=== PATIENT | male | born 1950 | race Caucasian/White ===

== ENCOUNTER 2018-09-07 06:45 | Day surgery (SDC) | payer OTHER ==
[2018-09-07] VITALS (13 sets, daily range): BP systolic 119–179; BP diastolic 72–92; PULSE 86–101; RESP 16–21; Ht 172.7 cm; Wt 74.4 kg
[~2018-09-07] VITALS: Ht 172.7 cm; Wt 74.4 kg
[~2018-09-07 06:45] MED LIST: BROMFENAC SODIUM 1.7 ML OPH DROP OPER SCH; LACTATED RINGER'S 1,000 ML IV SCH; MOXIFLOXACIN 0.5% 3 ML OPH OPER SCH; PHENYLephrine 2.5% 15 ML OPH OPER SCH; TETRACAINE 0.5% 4 ML OPH OPER SCH
[2018-09-07] MEDS ORDERED: LIDOCAINE 3.5% GEL TUBE OPER ONE (07:11)
[2018-09-07] MEDS ORDERED: CEFAZOLIN 1 GM INJ ONE (07:49)
[2018-09-07] MEDS ORDERED: PROPOFOL 20 ML ONE (07:49)
[2018-09-07] MEDS ORDERED: LIDOCAINE 2% (SDV) 5 ML INJ ONE (07:49)
[2018-09-07] MEDS ORDERED: MIDAZOLAM 1 MG/ML 2 ML INJ ONE (07:49)
--- NOTE | 2018-09-07 07:53 | HPN ---
Date/Time of Note Date/Time of Note DATE: 09/07/18 TIME: 07:52 Interval H&P Admission Note Pt. seen H&P reviewed: No system changes NIURKA PAUL D.O. Sep 07, 2018 07:53
[2018-09-07] MEDS ORDERED: LIDOCAINE 2%/EPI (MDV) 20ML INJ INJ ONE (08:00)
[2018-09-07] MEDS ORDERED: PHENYLephrine 10% 5 ML OPH RIGHT EYE ONE (08:00)
[2018-09-07] MEDS ORDERED: PHENYLephrine 10% 5 ML OPH ONE (08:10)
[2018-09-07] MEDS ORDERED: TOBRAMYCIN/DEXAMETH 3.5 GM OPH OINT ONE (08:10)
[2018-09-07] MEDS ORDERED: SIMV40TA3 PO (08:15)
[2018-09-07] MEDS ORDERED: LOSA25TA12 PO (08:15)
[2018-09-07] MEDS ORDERED: GLIP5TAB13 PO (08:16)
[2018-09-07] MEDS ORDERED: METF100010 PO (08:16)
[2018-09-07] MEDS ORDERED: AMLO-147 PO (08:16)
--- NOTE | 2018-09-07 08:40 | PREAC ---
Date/Time of Note Date/Time of Note DATE: 09/07/18 TIME: 08:39 Anesthesia Eval and Record Evaluation Time Pre-Procedure Interview DATE: 09/07/18 TIME: 08:39 Age 67 Sex male NPO: 8 hrs Preoperative diagnosis R eye pterygium Planned procedure R pterygium excision Past Medical History Past Medical History: Includes Cardio: HTN, Dyslipidemia Endo: Diabetes Surgery & Anesthesia Issues No known issue Meds Anticoagulation: No Beta Radha within 24 hr: No Reason Beta Radha not given: Pt. not on B-Radha Reported Medications Glipizide* (Glipizide*) 5 Mg Tablet, 5 MG PO BID, TAB 09/07/18 Amlodipine Besylate* (Amlodipine Besylate*) 10 Mg Tablet, 10 MG PO DAILY, #30 TAB 09/07/18 Metformin Hcl* (Metformin Hcl*) 1,000 Mg Tablet, 1000 MG PO WITH BREAKFAST DINNE, #60 TAB 09/07/18 Losartan Potassium* (Losartan Potassium*) 25 Mg Tablet, 25 MG PO DAILY, TAB 09/07/18 Simvastatin (Simvastatin) 40 Mg Tablet, 40 MG PO QHS, #30 TAB 09/07/18 Current Medications Lactated Ringer's 1,000 ml @ 25 mls/hr Q24H IV ; Start 09/06/18 at 15:14; Stop 09/07/18 at 13:00 Bromfenac Sodium (Bromday) 1 drop Q5 MIN X3 OPER Last administered on 09/07/18at 07:26; Admin Dose 1 DROP; Start 09/06/18 at 15:30; Stop 09/07/18 at 13:00 Phenylephrine HCl (Ak-Dilate 2.5%) 1 drop Q5MIN X 3 OPER Last administered on 09/07/18at 07:31; Admin Dose 1 DROP; Start 09/06/18 at 15:30; Stop 09/07/18 at 13:00 Moxifloxacin HCl (Vigamox) 1 drop Q5MIN X 3 OPER Last administered on 09/07/18at 07:26; Admin Dose 1 DROP; Start 09/06/18 at 15:30; Stop 09/07/18 at 13:00 Tetracaine HCl (Tetracaine 0.5% Steri-Unit Shilpa) 1 drop Q5 MIN X3 OPER Last administered on 09/07/18at 07:26; Admin Dose 1 DROP; Start 09/06/18 at 15:30; Stop 09/07/18 at 13:00 Meds reviewed: Yes Allergies Coded Allergies: No Known Allergy (Unverified , 09/07/18) Allergies Reviewed: Yes Labs/Studies Labs Reviewed: Reviewed by anesthesiologist test: N/A Studies: ECG (nml, nsr), CXR (nad) Pre-procedure Exam Last vitals Vital Signs Date Temp Pulse Resp B/P (MAP) Pulse Ox O2 O2 Flow FiO2 Time Delivery Rate 09/07/18 98.2 101 20 179/80 98 08:01 (113) Airway: Adequate mouth opening, Adequate thyromental dist Mallampati: Mallampati II Teeth: Abnormal (multiple missing and some broken teeth, teeth in poor condition) Lung: Normal Heart: Normal ASA Physical Status ASA physical status: 2 Emergency: None Planned Anesthetic General/MAC: MAC Pre-operative Attestations Prior to commencing anesthesia and surgery, the patient was re-evaluated, there was verification of: *The patient's identity *The results of appropriate recent lab work and preoperative vital signs *The above evaluation not changing prior to induction *Anesthetic plan, risk benefits, alternative and complications discussed with patient/family; questions answered; patient/family understands, accepts and wishes to proceed. CHUY DELAROSA Sep 07, 2018 08:40
[2018-09-07] MEDS ORDERED: TOBRAMYCIN/DEXAMETH 3.5 GM OPH OINT RIGHT EYE ONE (08:45)
[2018-09-07] MEDS ORDERED: LABETALOL HCL 20MG INJ IV PRN (09:00)
[2018-09-07] MEDS ORDERED: FENTAnyl 50 MCG/ML VIAL IV PRN (09:00)
[2018-09-07] MEDS ORDERED: ACETAMINOPHEN 500 MG TAB PO PRN (09:00)
[2018-09-07] MEDS ORDERED: OXYCODONE/ACETAMINOPHEN (5/325) TAB PO PRN (09:00)
[2018-09-07] MEDS ORDERED: hydrALAzine 20 MG INJ IV PRN (09:00)
[2018-09-07] MEDS ORDERED: ALBUTEROL 0.083% (NEB) 2.5 MG/3 ML AMP HHN PRN (09:00)
[2018-09-07] MEDS ORDERED: ONDANSETRON 4 MG INJ IV PRN (09:00)
[2018-09-07] MEDS ORDERED: ACETAMINOPHEN 325 MG TAB PO PRN (09:00)
[2018-09-07] MEDS ORDERED: DIPHENHYDRAMINE 50 MG INJ IV PRN (09:00)
--- NOTE | 2018-09-07 09:03 | PAC ---
Date/Time of Note Date/Time of Note DATE: 09/07/18 TIME: 09:02 Post-Anesthesia Notes Post-Anesthesia Note Last documented vital signs Vital Signs Date Temp Pulse Resp B/P (MAP) Pulse Ox O2 O2 Flow FiO2 Time Delivery Rate 09/07/18 99.1 88 20 141/80 98 RA 0857 Activity: WNL Respiratory function: WNL Cardiovascular function: WNL Mental status: Baseline Pain reasonably controlled: Yes Hydration appropriate: Yes Nausea/Vomiting absent: Yes CHUY DELAROSA Sep 07, 2018 09:03
--- NOTE | 2018-09-07 09:04 | SIPON ---
Date/Time of Note Date/Time of Note DATE: 09/07/18 TIME: 09:01 Operative Report Preoperative Diagnosis peripheral progressive pterigium, Rt eye Postoperative Diagnosis Peripheral progressive pterigium, Rt eye Operation/Procedure Performed Pterigium removal with sliding autograft, Rt eye Surgeon see signature line library assistant none Anesthesia: MAC Estimated blood loss: none Transfusion Required none Specimen none Grafts/Implants none Complications none NIURKA PAUL D.O. Sep 07, 2018 09:04
[2018-09-07] MEDS ORDERED: INSULIN ASPART [NOVOLOG] 3 ML PEN SC ONE (09:30)
--- NOTE | 2018-09-11 12:52 | OPR ---
DATE OF OPERATION: 09/07/2018 SURGEON: Niurka Paulson DO ANESTHESIOLOGIST: Naomy Mclean NP, anesthetic nurse PREOPERATIVE DIAGNOSIS: Progressive peripheral pterygium, right eye. POSTOPERATIVE DIAGNOSIS: Progressive peripheral pterygium, right eye. PROCEDURE PLANNED: Excision of pterygium with conjunctival autograft, right eye. PROCEDURE PERFORMED: Excision of pterygium with sliding conjunctival autograft, right eye. ANESTHESIA: MAC. CONSENT: The patient was given the option of treatment of his condition, medication or surgery. The patient is aware of possible complications which include but not limited to hemorrhage, infection, scar formation, recurrence, loss of vision, loss of the eye or organ. Consent was signed and can be found in his chart. DESCRIPTION OF PROCEDURE: The patient was brought to the operating room in stable condition and placed on operating table in supine position. His right eye was prepared in routine sterile technique for pterygium surgery . Then lidocaine with epinephrine preservative-free was injected subconjunctivally and body of the pterygium was demarcated with handpiece cautery. Then body was from underlying tissue with Howie scissors and head of the pterygium was removed from the cornea by thorough dissection from the cornea with [place] knife. The cornea was scraped and polished with bur thor. Then, superior and inferior graft was created from own conjunctival tissue. Each of the pieces of the graft was attached to each other with 8-0 Vicryl suture to cover bare sclera. TobraDex ointment was instilled and patch was placed over closed eyelids.Eventully patient as transferred to recovery room in stable condition, Dictated By: NIURKA GREWAL/NORMA Conf#: [id number] DID#: [id number]
== END 2018-09-07 10:40 | disposition home or self-care (01) ==
LOC: SDS 06:45
PROVIDERS: ATTEND Ophthalmology
DX: H11.051 Peripheral pterygium, progressive, right eye (principal); E11.9 Type 2 diabetes mellitus without complications; I10 Essential (primary) hypertension; E78.5 Hyperlipidemia, unspecified; Z79.84 Long term (current) use of oral hypoglycemic drugs
CPT/HCPCS: 65426; 82962; J0690; J1815; J2250